=== PATIENT | male | born 1975 | race Caucasian/White ===

== ENCOUNTER 2017-05-26 17:17 | Emergency (ER) | payer OTHER ==
[~2017-05-26] VITALS: Ht 182.9 cm; Wt 124.7 kg
[~2017-05-26 17:17] MED LIST: LRT5 PO
[2017-05-26 17:22] VITALS: BP 143/91; PULSE 64; TEMP 36.7; O2SAT 96; Ht 182.9 cm; Wt 124.7 kg
[2017-05-26] MEDS ORDERED: PROPARACAINE HCL 0.5% OP SOLN 15 ML BTL OP STA (17:46)
[2017-05-26] MEDS ORDERED: CIPROFLOXACIN HCL 0.3% OP SOLN 2.5 ML BTL OP STA (18:02)
--- NOTE | 2017-05-26 18:05 | EMERGENCY ROOM VISIT NOTE ---
History First contact with patient: 17:26 Chief Complaint: EYE ASSESSMENT Stated Complaint: EYE PRESSURE, REDNESS, BLISTER History of Present Illness The patient is a 41 year old male who presents to the Emergency Room via private vehicle accompanied by by female with complaints of "eye pressure, redness, blister". The patient states that this morning he woke up with right eye redness. He states that he is close to a lot of sick contacts but without eye issues. He notes minimal pain and redness in the right eye. He normally wears contacts but now is wearing his glasses. There is a foreign body sensation in the eye but does not recall anything getting into the eye. There is positive discharge and what feels like excessive moisture. He has been rubbing the eye quite a bit. There is no change in vision. He also notes a minimal pain behind the right eye in the head. Review of Systems A complete 6-point Review of Systems was discussed with the patient, with pertinent positives and negatives listed in the History of Present Illness. All remaining Review of Systems questions can be considered negative unless otherwise specified. Past Medical/Surgical History Medical Problems: (1) Anxiety (2) Depression Social History Smoking Status: Former Smoker Alcohol Use: occasionally Marital Status: in relationship Housing Status: lives with family Occupation Status: employed Current/Historical Medications Scheduled Fluoxetine (Prozac), 20 MG PO DAILY Omeprazole (Prilosec), 20 MG PO DAILY Physical Exam Vital Signs Date Time Temp Pulse Resp B/P (MAP) Pulse Ox O2 Delivery O2 Flow Rate FiO2 3/7/18 17:22 36.7 64 18 143/91 96 Room Air Right Eye Acuity: 20/25 Left Eye Acuity: 20/25 Physical Exam VITAL SIGNS - Vital signs and nursing notes were reviewed. Stable. Hypertensive. Afebrile. GENERAL -41-year-old male appearing his stated age. Communicates well with provider and answers questions appropriately. HEAD - Normocephalic, Atraumatic. EYES - PERRL with EOMI bilaterally. Sclera without noticeable foreign body or excoriations. Bulbar conjunctival injection noted in the R eye. Without subconjunctival hemorrhage. Palpebral conjunctiva pink and moist with no injection or discharge noted.Slit lamp examination performed as further described. An Automated Tonometer was utilized to obtain bilateral orbital pressures. The pressures in the LEFT eye were found to be 15, 15 with an average of 15. The pressures in the RIGHT eye were found to be 14, 15 with an average of 14.5. Patient tolerated the procedure well and no complications were met. Slit Lamp Examination was performed of the R eye(s). Alcaine drops were applied to the affected eye(s) for proper anesthetization. The affected eye(s) were stained with Fluorescein stain to precipitate adequate visualization of any conjunctival/scleral excoriations or ulcers. The patient's face was comfortably rested on the chin guard of the slit lamp apparatus. The lights were dimmed and the affected eye(s) were thoroughly examined under microscopy using the blue light. No uptake was present in the R eye. Additionally, the eye(s) were examined under microscopy using the regular light. Close examination revealed minimal chemosis, without abnormality. Patient tolerated the procedure well and no complications were met. Medical Decision & Procedures Medical Decision Patient was seen and evaluated as above. He presents to us today with R eye discomfort. Exam is consistent with R viral/bacterial conjunctivitis. Ciloxan drops initiated in the case of bacterial. No evidence of zoster, abrasion, ulcer , or other emergent process. Visual acuity normal. No evidence of cellulitis. The patient was educated upon management, had questions answered prior to discharge, and was discharged home in good condition. In the evaluation and treatment of this patient, the following differential diagnoses were considered: Corneal Abrasion, Conjunctivitis, Eye Contusion, Globe Injury, Orbital Floor Injury (Blowout Fracture), Corneal Ulcer, Keratitis , Herpes Zoster Opthalmic, Blepharitis, Orbital Cellulitis, Iritis, Scleritis/ Episcleritis, Uveitis, Temporal Arteritis, Subconjunctival Hemorrhage. Impression Primary Impression: Conjunctivitis Departure Information Dispostion Home / Self-Care Condition GOOD Referrals Deny Falk M.D. (MEDICAL) (PCP) Patient Instructions My [facility] Additional Instructions You have been treated in the Emergency Department for R eye conjunctivitis. You were prescribed Ciloxan to be 1 to 2 drops into the conjunctival sac every 2 hours while awake for 2 days and 1 to 2 drops every 4 hours while awake for the next 5 days. This is an antibiotic. Stop this medication and contact a medical provider if you were to develop any significant adverse side effects including: wheezing, shortness of breath, passing out, vomiting, or a diffuse rash. Always take antibiotics as directed and COMPLETE the ENTIRE course regardless of the improvement of your symptoms. For pain control, you can use the following [id number] medicines (if >12 yo): - Regular strength (325mg/tab) Tylenol (acetaminophen) 2 tabs every 4-6 hours as needed. Do not exceed 12 tablets in a 24 hour period. Avoid taking more than 3 grams (3000 mg) of Tylenol per day. This includes any other sources of acetaminophen you may take on a regular basis. - Regular strength (200 mg/tab) Advil (ibuprofen) 1-2 tabs every 4-6 hours as needed. Do not exceed a dose of 3200 mg per day. Avoid rubbing your eyes for the next few days as this can cause irritation. Wear sunglasses when outside to help minimize your pain. You should relax in a quiet, dark room to help minimize your symptoms. Keep your family doctor appointment for tomorrow. Return to the emergency department if you develop the following symptoms despite treatment course outlined above: blurry vision, loss of vision, fever, intractable pain, increased redness, swelling, or purulent discharge.
[2017-05-26] MEDS ORDERED: CIPR0.3S OPR (18:09)
[2017-05-26] MEDS ORDERED: PRLSR20 PO (18:17)
[2017-05-26] MEDS ORDERED: FLUO20CA35 PO (18:17)
== END 2017-05-26 18:34 | disposition home or self-care (01) ==
LOC: C.EDB 17:19 → C.EDD 18:34
DX: H10.9 Unspecified conjunctivitis (principal); F32.9 Major depressive disorder, single episode, unspecified; Z87.891 Personal history of nicotine dependence